=== PATIENT | male | born 1975 | race Caucasian/White ===

== ENCOUNTER 2020-12-25 22:55 | Emergency (ER) | payer MEDICARE ==
[~2020-12-25] VITALS: Ht 177.8 cm; Wt 60.3 kg
[2020-12-25 23:02] VITALS: BP 138/73
[2020-12-25] MEDS ORDERED: bacitracin 15gm ointment TP ONE (23:55)
[2020-12-25] MEDS ORDERED: LIDOcaine 1% W/epiNEPHrine 1:200,000 10ml vial IJ ONE (23:55)
[2020-12-26] MEDS ORDERED: IBUP-1984 PO (00:21)
[2020-12-26] MEDS ORDERED: CEPH250T PO (00:21)
== END 2020-12-26 00:40 | disposition home or self-care (01) ==
LOC: ER 22:55
DX: S91.301A Unspecified open wound, right foot, initial encounter (principal); Z79.2 Long term (current) use of antibiotics; Z79.899 Other long term (current) drug therapy; X58.XXXA Exposure to other specified factors, initial encounter; Y93.89 Activity, other specified; Y92.89 Other specified places as the place of occurrence of the external cause; Y99.8 Other external cause status
CPT/HCPCS: 99283